=== PATIENT | female | born 1990 | race Caucasian/White ===

== ENCOUNTER 2018-04-07 00:14 | Emergency (ER) | payer MEDICAID ==
[~2018-04-07] VITALS: Ht 162.6 cm; Wt 68.0 kg
[2018-04-07 00:29] VITALS: Ht 162.6 cm; Wt 68.0 kg
[2018-04-07 03:53] LABS: BASOPHIL % 0.2 % (0-2); PLATELET COUNT 363 x10^3mcL (130-400); RED CELL DISTRIBUTION WIDTH 13.5 % (11.5-14.5)
[2018-04-07 03:55] LABS: CALCIUM 7.7 mg/dL (8.5-10.1); CARBON DIOXIDE 16.8 mmol/L (21-32); POTASSIUM SERUM 3.5 mmol/L (3.5-5.1)
[2018-04-07 04:08] LABS: CREATININE SERUM 1.2 mg/dL (0.6-1.0)
[2018-04-07 04:56] VITALS: BP 96/55
== END 2018-04-07 04:46 | disposition short-term general hospital (02) ==
LOC: ED 00:14
PROVIDERS: Emergency Medicine
DX: S01.01XA Laceration without foreign body of scalp, initial encounter (principal); S06.6X0A Traumatic subarachnoid hemorrhage without loss of consciousness, initial encounter; F10.129 Alcohol abuse with intoxication, unspecified; X58.XXXA Exposure to other specified factors, initial encounter; Y93.89 Activity, other specified; Y92.89 Other specified places as the place of occurrence of the external cause; Y99.8 Other external cause status
CPT/HCPCS: 36415; G0480; J1953; J2001; J3490